=== PATIENT | female | born 1970 | race Caucasian/White ===

== ENCOUNTER → 2016-04-10 | Outpatient (CLI) | payer BC | LOC: OD 12:04 | PROVIDERS: ATTEND Nurse Practitioner | DX: M25.551 Pain in right hip (principal) ==

== ENCOUNTER 2016-05-01 02:05 | Emergency (ER) | payer BC ==
--- NOTE | 2016-05-01 02:18 | ER Document Report ---
ED Medical Screen (RME) - General Chief Complaint: Numbness of Face Stated Complaint: STROKE LIKE SYMPTOMS Notes: 45 year old female that comes to the ED for chief complaint of tingling sensation in both hands that started this afternoon today. Also states her face has started tingling. No other stated complaints other than feeling "parched", has barely ate or drank today or yesterday, states she has no appetite, felt nauseated yesterday, denies fever. TRAVEL OUTSIDE OF THE [place] 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 Out of time frame either way. No headache. Low suspicion of intracranial hemorrhage. - Vital Signs Vital signs: Temp Pulse Resp BP Pulse Ox 98.8 F 88 18 150/85 H 98 05/01/16 02:09 05/01/16 02:09 05/01/16 02:09 05/01/16 02:09 05/01/16 02:09
[2016-05-01 03:44] LABS: ABSOLUTE BASOPHILS # (AUTO) 0.1 10^3/uL (0.0-0.2); ABSOLUTE LYMPHOCYTES (AUTO) 2.2 10^3/uL (0.5-4.7); ABSOLUTE MONOCYTES (AUTO) 0.6 10^3/uL (0.1-1.4); ABSOLUTE NEUT (AUTO) 8.1 10^3/uL (1.7-8.2); BASOPHILS % (AUTO) 0.6 % (0-2); EOSINOPHILS % (AUTO) 0.3 % (0-6); HEMATOCRIT 46.5 % (36.0-47.0); HEMOGLOBIN 16.5 g/dL (12.0-15.5); LYMPHOCYTES % (AUTO) 19.9 % (13-45); MEAN CORPUSCULAR HEMOGLOBIN 34.3 pg (27.0-33.4); MEAN CORPUSCULAR HGB CONC 35.5 g/dL (32.0-36.0); MEAN CORPUSCULAR VOLUME 97 fl (80-97); MONOCYTES % (AUTO) 5.8 % (3-13); RED BLOOD COUNT 4.81 10^6/uL (3.72-5.28); RED CELL DISTRIBUTION WIDTH 12.9 % (11.5-14.0); SEGMENTED NEUTROPHILS % (AUTO) 73.4 % (42-78); WHITE BLOOD COUNT 11.1 10^3/uL (4.0-10.5)
[2016-05-01 03:48] LABS: APPEARANCE,URINE CLEAR; BILIRUBIN,URINE NEGATIVE (NEGATIVE); GLUCOSE, URINE NEGATIVE (NEGATIVE); KETONES,URINE NEGATIVE (NEGATIVE); LEUKOCYTE ESTERASE,URINE NEGATIVE (NEGATIVE); NITRITE,URINE NEGATIVE (NEGATIVE); PROTEIN,URINE 100 mg/dL (NEGATIVE); UROBILINOGEN,URINE NEGATIVE mg/dL (<2.0)
[2016-05-01 04:00] LABS: ALANINE AMINOTRANSFERASE 23 U/L (9-52); ALBUMIN 4.9 g/dL (3.5-5.0); ALKALINE PHOSPHATASE 95 U/L (38-126); ANION GAP 17 (5-19); ASPARTATE AMINO TRANSFERASE 17 U/L (14-36); BILIRUBIN,DIRECT 0.3 mg/dL (0.0-0.4); BILIRUBIN,TOTAL 0.5 mg/dL (0.2-1.3); BLOOD UREA NITROGEN 5 mg/dL (7-20); CALCIUM 10.6 mg/dL (8.4-10.2); CARBON DIOXIDE 23 mmol/L (22-30); CHLORIDE 104 mmol/L (98-107); CREATININE RESULT 0.45 mg/dL (0.52-1.25); GLUCOSE 137 mg/dL (75-110); POTASSIUM 3.4 mmol/L (3.6-5.0); SODIUM 143.9 mmol/L (137-145); TOTAL PROTEIN 7.8 g/dL (6.3-8.2)
[2016-05-01] MEDS ORDERED: POTASSIUM CHLORIDE 10 MEQ TABLET.SA PO ONE (08:00)
[2016-05-01] MEDS ORDERED: NORMAL SALINE 1000 ML 1,000 ML IV ONE (08:00)
--- NOTE | 2016-05-01 08:03 | ER Document Report ---
ED Neuro Symptoms/Deficit - General Chief Complaint: Numbness Stated Complaint: STROKE LIKE SYMPTOMS Mode of Arrival: Ambulatory Information source: Patient Notes: Patient presents with a complaint of left facial tingling and tingling to left upper extremity. Patient states that symptoms started gradually yesterday. Patient does report that she had some resolution and then had tingling to right upper extremity, and then tingling return to left upper extremity. Patient does report nausea but denies any vomiting or diarrhea. Patient states that she has had migraines in the past in which she had the numbness and tingling only involving the right upper extremity. Patient reports mild headache but states it is much improved now. Patient denies any fever. Patient denies any head injury or sinus problems. TRAVEL OUTSIDE OF THE [place] IN LAST 30 DAYS: No - HPI Patient complains to provider of: Paresthesia. No: Difficulty standing, Difficulty walking, Facial Droop, Vision Changes, Weakness Onset: Other - 2 days Symptoms are: Constant Duration: Continues in ED Quality of pain: Achy Pain Level: 1 Context: denies: Head injury Loss of consciousness: No loss of consciousness Baseline Cognitive: Alert, oriented X 3 Alert To: Name/Voice Patient Orientation: Person, Place, Time, Events Altered sensation: LUE, L facial Decreased ability to stand/walk: denies: Weak, Off balance, Cannot walk Associated symptoms: denies: Chest pain, Back pain, Dizzy, Fever, Lightheadedness, Nausea - Related Data Allergies/Adverse Reactions: Sulfa (Sulfonamide Antibiotics) Allergy (Verified 05/01/16 02:15) Past Medical History - General Information source: Patient - Social History Smoking Status: Current Every Day Smoker Chew tobacco use (# tins/day): No Frequency of alcohol use: None Drug Abuse: None Occupation: none Lives with: Spouse/Significant other Family History: Reviewed & Not Pertinent Patient has suicidal ideation: No Patient has homicidal ideation: No - Past Medical History Cardiac Medical History: Reports: Hx Hypertension Neurological Medical History: Reports: Hx Migraine Renal/ Medical History: Denies: Hx Peritoneal Dialysis Psychiatric Medical History: Reports: Hx Depression Past Surgical History: Reports: Hx Section, Hx Herniorrhaphy, Hx Hysterectomy, Hx Oral Surgery Review of Systems - Review of Systems Constitutional: No symptoms reported. denies: Fever, Recent illness EENT: Dental problem - Patient does report tenderness to dental implant on left side of mouth Cardiovascular: No symptoms reported. denies: Chest pain, Syncope, Dizziness, Lightheaded Respiratory: No symptoms reported. denies: Cough, Short of breath Gastrointestinal: Nausea. denies: Abdominal pain, Diarrhea, Vomiting Genitourinary: No symptoms reported Female Genitourinary: No symptoms reported Musculoskeletal: No symptoms reported. denies: Back pain, Neck pain Skin: No symptoms reported. denies: Rash Hematologic/Lymphatic: No symptoms reported Neurological/Psychological: Headaches - Very mild headache, Tingling - Left upper extremity, left face. denies: Confusion, Weakness, Numbness Physical Exam - Vital signs Vitals: Temp Pulse Resp BP Pulse Ox 98.8 F 88 18 150/85 H 98 05/01/16 02:09 05/01/16 02:09 05/01/16 02:09 05/01/16 02:09 05/01/16 02:09 - General General appearance: Appears well, Alert In distress: None - HEENT Head: Normocephalic, Atraumatic Eyes: Normal Conjunctiva: Normal Extraocular movements intact: Yes Eyelashes: Normal Pupils: PERRL Visual brock normal: Yes Ears: Normal External canal: Normal Tympanic membrane: Normal Nasal: Normal Mouth/Lips: Normal Mucous membranes: Dry Pharynx: Normal. No: Erythema, Exudate Neck: Normal, Supple. No: Brudzinski, Lymphadenopathy, Meningismus - Respiratory Respiratory status: No respiratory distress Chest status: Nontender Breath sounds: Normal. No: Rales, Rhonchi, Stridor, Wheezing Chest palpation: Normal - Cardiovascular Rhythm: Regular Heart sounds: S1 appreciated, S2 appreciated Murmur: No - Abdominal Inspection: Normal Distension: No distension Bowel sounds: Normal Tenderness: Nontender Organomegaly: No organomegaly - Back Back: Normal, Nontender. No: CVA tenderness, Vertebra tenderness - Extremities General upper extremity: Normal inspection, Nontender, Normal strength General lower extremity: Normal inspection, Nontender, Normal strength - Neurological Neuro grossly intact: Yes Cognition: Normal Orientation: AAOx4 Watson Coma Scale Eye Opening: Spontaneous Watson Coma Scale Verbal: Oriented Watson Coma Scale Motor: Obeys Commands Watson Coma Scale Total: 15 Speech: Normal. No: Dysarthria, Expressive aphasia, Receptive aphasia Cranial nerves: Normal. No: Facial palsy, Tongue deviation Cerebellar coordination: Normal, Heel-zambrano, Finger-nose rhombey, Rapid alt. movements. 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 No: Involuntary movements - Psychological Associated symptoms: Normal affect, Anxious - mild - Skin Skin Temperature: Warm Skin Moisture: Dry Skin Color: Normal Course - Re-evaluation Re-evalutation: 05/01/16 08:[address] Nunez who recommends CT head imaging 05/01/16 Patient continues with no focal neurologic deficits at discharge. Patient states that she feels that her facial symptoms are related to her dental implants. Patient advised that she will need to follow-up with her primary doctor as well as a neurologist for further evaluation. Discussed worsening signs or symptoms that patient [facility]. Patient verbalized understanding and agrees with plan of care. - Vital Signs Vital signs: Temp Pulse Resp BP Pulse Ox 98.5 F 86 16 132/71 H 100 05/01/16 10:05 05/01/16 10:05 05/01/16 10:05 05/01/16 10:05 05/01/16 10:05 - Laboratory Result Diagrams: 05/01/16 03:30 05/01/16 03:30 Laboratory results interpreted by me: 05/01/16 05/01/16 05/01/16 03:30 03:30 03:30 WBC 11.1 H Hgb 16.5 H MCH 34.3 H Plt Count 555 H Potassium 3.4 L BUN 5 L Creatinine 0.45 L Glucose 137 H Calcium 10.6 H Urine Protein 100 H Urine Ascorbic Acid 40 H 05/01/16 18:56 Labs- Entire Visit 05/01/16 05/01/16 05/01/16 03:30 03:30 03:30 WBC 11.1 H RBC 4.81 Hgb 16.5 H Hct 46.5 MCV 97 MCH 34.3 H MCHC 35.5 RDW 12.9 Plt Count 555 H Seg Neutrophils % 73.4 Lymphocytes % 19.9 Monocytes % 5.8 Eosinophils % 0.3 Basophils % 0.6 Absolute Neutrophils 8.1 Absolute Lymphocytes 2.2 Absolute Monocytes 0.6 Absolute Eosinophils 0.0 Absolute Basophils 0.1 Sodium 143.9 Potassium 3.4 L Chloride 104 Carbon Dioxide 23 Anion Gap 17 BUN 5 L Creatinine 0.45 L Est GFR ( Amer) > 60 Est GFR (Non-Af Amer) > 60 Glucose 137 H Calcium 10.6 H Total Bilirubin 0.5 Direct Bilirubin 0.3 Indirect Bilirubin Not Reportable Neonat Total Bilirubin Not Reportable AST 17 ALT 23 Alkaline Phosphatase 95 Total Protein 7.8 Albumin 4.9 Urine Color YELLOW Urine Appearance CLEAR Urine pH 5.0 Ur Specific Temple 1.030 Urine Protein 100 H Urine Glucose (UA) NEGATIVE Urine Ketones NEGATIVE Urine Blood NEGATIVE Urine Nitrite NEGATIVE Urine Bilirubin NEGATIVE Urine Urobilinogen NEGATIVE Ur Leukocyte Esterase NEGATIVE Urine WBC (Auto) 3 Urine RBC (Auto) 1 Squamous Epi Cells Auto <1 Urine Mucus (Auto) RARE Urine Ascorbic Acid 40 H - Diagnostic Test Radiology reviewed: Reports reviewed Discharge - Discharge Clinical Impression: Paresthesia, Hx of migraines, Hypokalemia, Hx of essential hypertension Dental implant pain Qualifiers: Encounter type: initial encounter Qualified Code(s): T85.848A - Pain due to other internal prosthetic devices, implants and grafts, initial encounter Condition: Stable Disposition: HOME, SELF-CARE Instructions: Numbness or Paresthesia ([facility]), Penicillin V K ([facility]), Hypokalemia ([facility]), Headache ([facility]) Additional Instructions: Return immediately for any new or worsening symptoms Followup with your primary care provider, call tomorrow to make a followup appointment Follow up with a neurologist for further evaluation Increase your diet with foods rich in potassium. Your primary doctor can recheck a potassium level in the office. Stay well-hydrated Prescriptions: Butalb/Acetaminophen/Caffeine [Fioricet (50-325-40 mg) Tablet] 1 - 2 tab PO Q4H #20 each Penicillin V Potassium [Penicillin Vk 500 mg Tablet] 500 mg PO BID #20 tablet Referrals: DEBRA GARNER MD [ACTIVE STAFF] - Follow up as needed TIFF RHOADES MD [EMERITUS] - Follow up tomorrow
[2016-05-01 13:24] VITALS: BP 136/68
== END 2016-05-01 10:05 | disposition home or self-care (01) ==
LOC: ER 02:05
DX: R20.0 Anesthesia of skin (principal); R51 Headache; E87.6 Hypokalemia; R11.0 Nausea; T85.848A Pain due to other internal prosthetic devices, implants and grafts, initial encounter; F17.200 Nicotine dependence, unspecified, uncomplicated; I10 Essential (primary) hypertension; Z88.2 Allergy status to sulfonamides; Z90.710 Acquired absence of both cervix and uterus
CPT/HCPCS: 99284; 36415; 85025; 80053; 81001; 70450; J7030